=== PATIENT | male | born 1965 | race African-American/Black ===

== ENCOUNTER 2025-01-24 03:11 | Emergency (ER) | payer MEDICAID ==
[~2025-01-24] VITALS: Ht 170.2 cm; Wt 86.0 kg
[2025-01-24 04:02] VITALS: TEMP 36.7; O2SAT 100
[2025-01-24] MEDS ORDERED: CEPH500T MT (05:11)
[2025-01-24] MEDS ORDERED: SULF1TAB48 MT (05:11)
[2025-01-24] MEDS ORDERED: KETO10TA2 MT (05:11)
[2025-01-24] MEDS: KETOROLAC 30MG/ML VIAL IM ONE (05:30)
[2025-01-24 05:33] VITALS: BP 136/78; PULSE 70; RESP 20; O2SAT 96
== END 2025-01-24 05:39 | disposition home or self-care (01) ==
LOC: ER 03:21
DX: L02.31 Cutaneous abscess of buttock (principal); E11.9 Type 2 diabetes mellitus without complications; E78.00 Pure hypercholesterolemia, unspecified; I10 Essential (primary) hypertension; Z51.11 Encounter for antineoplastic chemotherapy
CPT/HCPCS: 99283; 96372; J1885